=== PATIENT | female | born 2000 | race Caucasian/White ===

== ENCOUNTER 2024-07-09 11:19 | Day surgery (SDC) | payer BC, OTHER ==
[~2024-07-09] VITALS: Ht 160 cm; Wt 93.6 kg
[~2024-07-09 11:19] MED LIST: LR 1,000 ML IV SCH; Ondansetron 4 MG/2 ML VIAL IV PRN
[2024-07-09] MEDS ORDERED: Lidocaine PF 2% (20 MG/ML) 5 ML VIAL ONE (12:12)
[2024-07-09 12:50] VITALS: BP 122/72; PULSE 92; TEMP 98.2
[2024-07-09 13:10] VITALS: BP 109/67; PULSE 86; TEMP 96.8
[2024-07-09 13:15] VITALS: BP 108/63; PULSE 82
[2024-07-09 13:30] VITALS: BP 96/69; PULSE 79
--- NOTE | 2024-07-09 14:04 | NUR ---
1310- PT BACK FROM ENDO PROCEDURE VIA CART TO BAY 3. PT AMBULATED FROM CART TO RECLINER WITH ASSISTANCE. MONITORS ON AND ALARMS SET. VSS. REPORT RECIEVED FROM DEA DIAZ. CALL LIGHT WITHIN REACH. PT REQUESTING FOOD AND DRINK. NO OTHER NEEDS AT THIS TIME. 1315- PT TAKING FOOD AND DRINK WELL. NO COMPLICATIONS NOTED. 1330- DR. MENCHACA IN THE ROOM AT THIS TIME GOING OVER PROCEUDRE. 1350- DISCHARGE PAPERWORK GIVEN. NO QUESTIONS AT THIS TIME. 1400- PT TRANSFERRED OUT OF HOSPITAL VIA WHEELCHAIR TO OWN PERSONAL VEHICLE DRIVEN BY MOM.
== END 2024-07-09 14:00 | disposition home or self-care (01) ==
LOC: SDCO 11:19
DX: K22.2 Esophageal obstruction (principal); K20.90 Esophagitis, unspecified without bleeding; K29.50 Unspecified chronic gastritis without bleeding; R11.10 Vomiting, unspecified
CPT/HCPCS: C1726; J2704